=== PATIENT | female | born 1995 | race Caucasian/White ===

== ENCOUNTER 2019-08-09 14:08 | Inpatient (IN) ==
[2019-08-09] MEDS ORDERED: TORADOL IVP STA (14:28)
[2019-08-09] MEDS ORDERED: LACTATED RINGERS 1,000 ML IV STA (14:28)
--- NOTE | 2019-08-09 14:34 | ED.PDOC ---
General ED Provider: Dr. FARRAH XIE MD Chief Complaint: Fever Stated Complaint: mild to mod off and on fever and right pleuritic chest wall pain w/ coughing for 4 days, no rash, no injury, no lethargy Time Seen by Physician: 14:32 Mode of Arrival: Walk-In Information Source: Patient Nursing and Triage Documentation Reviewed and Agree: Yes Does patient meet sepsis criteria?: No System Inflammatory Response Syndrome: Not Applicable Sepsis Protocol: For patient's 13 years and over: Temp is 96.8 and below OR 101 and greater Pulse >90 BPM Resp >20/minute Acutely Altered Mental Status Are patient's symptoms suggestive of a new infection, such as: -Pneumonia -Skin, Soft Tissue -Endocarditis -UTI -Bone, Joint Infection -Implantable Device -Acute Abdominal Infection -Wound Infection -Meningitis -Blood Stream Catheter Infection -Unknown Respiratory Complaint Exam Respiratory Complaint/Exam Onset/Duration: 4 days Symptoms Are: Still present Timing: Intermittent Initial Severity: Mild Current Severity: Mild Character: Reports Non-productive cough Associated Signs and Symptoms: Reports Dyspnea, Fever and Pleuritic chest pain Review of Systems Review Of Systems Constitutional: Reports Fever and Malaise Eyes: Denies Vision change Ears, Nose, Mouth, Throat: Denies Throat pain Respiratory: Reports Cough and Short of air Cardiac: Reports Chest pain GI: Denies Abdominal pain and Vomiting : Denies Dysuria Musculoskeletal: Reports Muscle pain Skin: Denies Rash and Cyanosis Neurological: Denies Cognitive dysfunction All Other Systems: Other [facility] Medical History (Updated 08/09/19 @ 17:43 by GARETT DE SOUZA) Anxiety Depression Physical Exam Physical Exam Appearance: Reports No pain distress Ill-appearing: None Pain Distress: None Eyes: Reports TUTU, EOMI and Conjunctiva clear ENT: Reports Oropharynx normal and Rhinorrhea Neck: Supple Respiratory: Reports Airway patent, Breath sounds clear and Breath sounds equal Cardiovascular: Reports Tachycardia GI/: Reports Soft and Nontender Musculoskeletal: Reports ROM intact and No edema Skin: Reports Warm and Dry; Denies Cyanotic Neurological: Reports Motor intact, Cranial nerves intact, Alert and Oriented Psychiatric: Reports Affect appropriate Interpretation Radiology Interpretation Radiology Interpretation By: Radiologist Radiology Results: No acute changes Exam Interpreted: CXR EKG Interpretation Time of EKG #1: 16:02 Rate: Tachy Rhythm: Sinus Interpretation: no stemi Re-Evaluation Re-Evaluation Time of Re-Evaluation: 16:02 Status: Improved Vital Signs Stable: Yes Appearance: NAD Lungs: Clear Skin: Warm and Dry Neuro: Alert and Oriented X3 Additional Comments: pt improved, differential includes covid 19, hyperglycemia, uti, hypokalemia, admit d/w Oskar Critical Care Note Critical Care Note Total Time (mins): 0 Course Course Hematology/Chemistry: 08/09/19 14:48 08/09/19 14:48 Orders, Labs, Meds: Lab Review 08/09/19 08/09/19 08/09/19 14:42 14:42 14:45 WBC RBC Hgb Hct MCV MCH MCHC RDW Coeff of Sandra Plt Count Immature Gran % (Auto) Neut % (Auto) Lymph % (Auto) Yates % (Auto) Eos % (Auto) Baso % (Auto) Immature Gran # (Auto) Neut # (Auto) Lymph # (Auto) Yates # (Auto) Eos # (Auto) Baso # (Auto) Sodium Potassium Chloride Carbon Dioxide Anion Gap BUN Creatinine Estimated GFR (MDRD) BUN/Creatinine Ratio Glucose Lactic Acid Calcium Magnesium 1.39 L Total Bilirubin AST ALT Alkaline Phosphatase Total Creatine Kinase Total Protein Albumin Globulin Albumin/Globulin Ratio Procalcitonin 1.86 Serum , Qual Urine Color Urine Clarity Urine pH Ur Specific [place] Urine Protein Urine Glucose (UA) Urine Ketones Urine Blood Urine Nitrite Urine Bilirubin Urine Urobilinogen Ur Leukocyte Esterase Urine Microscopic RBC Urine Microscopic WBC Ur Squamous Epith Cells Urine Bacteria Urine Mucus Urine Opiates Screen Ur Oxycodone Screen Urine Methadone Screen Ur Propoxyphene Screen Ur Barbiturates Screen U Tricyclic Antidepress Ur Phencyclidine Scrn Ur Amphetamine Screen U Methamphetamines Scrn U Benzodiazepines Scrn Urine Cocaine Screen U Cannabinoids Screen Acetone, Qual None Influ A Molecular Assay Influ B Molecular Assay 08/09/19 08/09/19 08/09/19 14:45 14:48 14:48 WBC 7.98 RBC 4.01 L Hgb 12.1 Hct 36.3 L MCV 90.5 MCH 30.2 MCHC 33.3 RDW Coeff of Sandra 13.6 Plt Count 168 Immature Gran % (Auto) 1.9 Neut % (Auto) 77.8 H Lymph % (Auto) 9.0 L Yates % (Auto) 10.9 H Eos % (Auto) 0.0 Baso % (Auto) 0.4 Immature Gran # (Auto) 0.2 Neut # (Auto) 6.2 Lymph # (Auto) 0.7 Yates # (Auto) 0.9 Eos # (Auto) 0.0 Baso # (Auto) 0.0 Sodium 133.1 L Potassium 3.01 L Chloride 96.5 L Carbon Dioxide 24.9 Anion Gap 14.71 BUN 9.9 Creatinine 0.99 Estimated GFR (MDRD) 70.00 BUN/Creatinine Ratio 10.00 Glucose 291.5 H Lactic Acid Calcium 7.93 L Magnesium Total Bilirubin 0.42 AST 27.1 ALT 25.6 Alkaline Phosphatase 114.4 Total Creatine Kinase < 20.0 L Total Protein 5.72 L Albumin 2.93 L Globulin 2.79 Albumin/Globulin Ratio 1.05 Procalcitonin Serum , Qual Urine Color Urine Clarity Urine pH Ur Specific [place] Urine Protein Urine Glucose (UA) Urine Ketones Urine Blood Urine Nitrite Urine Bilirubin Urine Urobilinogen Ur Leukocyte Esterase Urine Microscopic RBC Urine Microscopic WBC Ur Squamous Epith Cells Urine Bacteria Urine Mucus Urine Opiates Screen Ur Oxycodone Screen Urine Methadone Screen Ur Propoxyphene Screen Ur Barbiturates Screen U Tricyclic Antidepress Ur Phencyclidine Scrn Ur Amphetamine Screen U Methamphetamines Scrn U Benzodiazepines Scrn Urine Cocaine Screen U Cannabinoids Screen Acetone, Qual Influ A Molecular Assay Influ B Molecular Assay 08/09/19 08/09/19 08/09/19 14:48 14:48 14:52 WBC RBC Hgb Hct MCV MCH MCHC RDW Coeff of Sandra Plt Count Immature Gran % (Auto) Neut % (Auto) Lymph % (Auto) Yates % (Auto) Eos % (Auto) Baso % (Auto) Immature Gran # (Auto) Neut # (Auto) Lymph # (Auto) Yates # (Auto) Eos # (Auto) Baso # (Auto) Sodium Potassium Chloride Carbon Dioxide Anion Gap BUN Creatinine Estimated GFR (MDRD) BUN/Creatinine Ratio Glucose Lactic Acid 4.42 H Calcium Magnesium Total Bilirubin AST ALT Alkaline Phosphatase Total Creatine Kinase Total Protein Albumin Globulin Albumin/Globulin Ratio Procalcitonin Serum , Qual Negative Urine Color Yellow Urine Clarity Cloudy Urine pH 6.0 Ur Specific [place] 1.015 Urine Protein 2+ H Urine Glucose (UA) 1+ H Urine Ketones Negative Urine Blood 2+ H Urine Nitrite Positive H Urine Bilirubin Negative Urine Urobilinogen 0.2 Ur Leukocyte Esterase 2+ H Urine Microscopic RBC 20-30 Urine Microscopic WBC Tntc Ur Squamous Epith Cells Not present Urine Bacteria 2+ Urine Mucus 1+ Urine Opiates Screen Ur Oxycodone Screen Urine Methadone Screen Ur Propoxyphene Screen Ur Barbiturates Screen U Tricyclic Antidepress Ur Phencyclidine Scrn Ur Amphetamine Screen U Methamphetamines Scrn U Benzodiazepines Scrn Urine Cocaine Screen U Cannabinoids Screen Acetone, Qual Influ A Molecular Assay Influ B Molecular Assay 08/09/19 08/09/19 14:52 14:55 WBC RBC Hgb Hct MCV MCH MCHC RDW Coeff of Sandra Plt Count Immature Gran % (Auto) Neut % (Auto) Lymph % (Auto) Yates % (Auto) Eos % (Auto) Baso % (Auto) Immature Gran # (Auto) Neut # (Auto) Lymph # (Auto) Yates # (Auto) Eos # (Auto) Baso # (Auto) Sodium Potassium Chloride Carbon Dioxide Anion Gap BUN Creatinine Estimated GFR (MDRD) BUN/Creatinine Ratio Glucose Lactic Acid Calcium Magnesium Total Bilirubin AST ALT Alkaline Phosphatase Total Creatine Kinase Total Protein Albumin Globulin Albumin/Globulin Ratio Procalcitonin Serum , Qual Urine Color Urine Clarity Urine pH Ur Specific [place] Urine Protein Urine Glucose (UA) Urine Ketones Urine Blood Urine Nitrite Urine Bilirubin Urine Urobilinogen Ur Leukocyte Esterase Urine Microscopic RBC Urine Microscopic WBC Ur Squamous Epith Cells Urine Bacteria Urine Mucus Urine Opiates Screen Negative Ur Oxycodone Screen Negative Urine Methadone Screen Negative Ur Propoxyphene Screen Negative Ur Barbiturates Screen Negative U Tricyclic Antidepress Negative Ur Phencyclidine Scrn Negative Ur Amphetamine Screen Positive H U Methamphetamines Scrn Positive H U Benzodiazepines Scrn Negative Urine Cocaine Screen Positive H U Cannabinoids Screen Positive H Acetone, Qual Influ A Molecular Assay Negative by naat Influ B Molecular Assay Negative by naat Orders Category Date Time Status EKG-(ED ONLY) Stat CARDIO 08/09/19 15:10 Completed ACTIVITY .BR with BRP CARE 08/09/19 16:05 Active BLOOD GLUCOSE MONITORING ACCUCHECK Q6H CARE 08/09/19 16:05 Completed INTAKE & OUTPUT Q8HR CARE 08/09/19 16:05 Active VITAL SIGNS Q8HR CARE 08/09/19 16:05 Active REGULAR DIET DIETARY 08/09/19 Dinner Ordered ACETONE, QUALITATIVE Routine LAB 08/09/19 14:42 Completed BLOOD CULTURE Stat LAB 08/09/19 15:40 Received CBC W/ AUTO DIFF DAILY@0600 LAB 08/10/19 06:00 Ordered CBC W/ AUTO DIFF DAILY@0600 LAB 08/11/19 06:00 Ordered CBC W/ AUTO DIFF Stat LAB 08/09/19 14:48 Completed COMPREHENSIVE METABOLIC PANEL DAILY@0600 LAB 08/10/19 06:00 Ordered COMPREHENSIVE METABOLIC PANEL DAILY@0600 LAB 08/11/19 06:00 Ordered COMPREHENSIVE METABOLIC PANEL Stat LAB 08/09/19 14:48 Completed COVID19, PCR IDPH Stat LAB 08/09/19 14:55 Received CREATINE KINASE Stat LAB 08/09/19 14:45 Completed DRUG SCREEN, URINE, RAPID Stat LAB 08/09/19 14:52 Completed FLU A/B MOLECULAR Stat LAB 08/09/19 14:55 Completed LACTIC ACID Stat LAB 08/09/19 14:48 Completed MAGNESIUM Stat LAB 08/09/19 14:45 Completed PROCALCITONIN Routine LAB 08/09/19 14:42 Completed SERUM Stat LAB 08/09/19 14:48 Completed THYROID PANEL WITH TSH Stat LAB 08/09/19 15:40 Received URINALYSIS C & S IF INDICATED Stat LAB 08/09/19 14:52 Completed URINE CULTURE Stat LAB 08/09/19 14:52 Received Acetaminophen [Tylenol] MEDS 08/09/19 16:05 Active 650 mg PO Q4H PRN Ceftriaxone/D5w 1 gm Premix [Rocephin 1 gm/50 ml D5w] MEDS 08/10/19 09:00 Active 1 gm in 50 ml IV DAILY Ceftriaxone/D5w 1 gm Premix [Rocephin 1 gm/50 ml D5w] MEDS 08/09/19 15:54 Discontinued 1 gm in 50 ml IV ONCE Ketorolac Tromethamine [Toradol] MEDS 08/09/19 14:28 Discontinued 30 mg IVP ONCE STA Ondansetron HCl/Pf [Zofran 4 mg/2 ml] MEDS 08/09/19 15:44 Discontinued 4 mg IVP ONCE STA Potassium Chloride [Potassium Chl 10% Oral Denisha] MEDS 08/09/19 15:09 Discontinued 20 meq PO ONCE STA Ringers Lactated Solution [Lactated Ringers] 1,000 ml MEDS 08/09/19 14:28 Discontinued IV BOLUS Sodium Chloride 0.9% [Sodium Chloride] 1,000 ml MEDS 08/09/19 16:30 Discontinued IV 75 mls/hr RESUSCITATION STATUS Routine OTHERS 08/09/19 16:05 Ordered CHEST, 1V AP ONLY Stat RADS 08/09/19 14:28 Completed Medications Generic Name Dose Route Start Last Admin Trade Name Freq PRN Reason Stop Dose Admin Acetaminophen 650 mg 08/09/19 16:05 Tylenol PO Q4H PRN Mild Pain CEFTRIAXONE/D5W 1 GM PREMIX 1 gm in 50 mls @ 75 mls/hr 08/10/19 09:00 Rocephin 1 Gm/50 Ml D5w IV 08/13/19 08:59 DAILY KAREN Sodium Chloride 1,000 mls @ 150 mls/hr 08/09/19 16:55 08/09/19 17:43 Sodium Chloride IV 150 mls/hr .[id number] KAREN Administration Magnesium Sulfate/Dextrose 1 gm in 100 mls @ 100 mls/hr 08/09/19 16:56 08/09/19 17:46 Magnesium Sulfate 1 Gm/100 Ml D5w IV 08/09/19 17:55 100 mls/hr ONCE STA Administration Potassium Chloride 40 meq in 200 mls @ 50 mls/hr 08/09/19 17:20 Potassium Chloride 20 Meq/100 Ml Premix IV 08/09/19 21:19 ONCE STA Discontinued Medications Generic Name Dose Route Start Last Admin Trade Name Freq PRN Reason Stop Dose Admin Lactated Ringer's 1,000 mls @ 1,000 mls/hr 08/09/19 14:28 08/09/19 14:48 Lactated Ringers IV 08/09/19 15:27 1,000 mls/hr BOLUS STA Administration CEFTRIAXONE/D5W 1 GM PREMIX 1 gm in 50 mls @ 75 mls/hr 08/09/19 15:54 08/09/19 16:14 Rocephin 1 Gm/50 Ml D5w IV 08/09/19 16:33 75 mls/hr ONCE STA Administration Sodium Chloride 1,000 mls @ 75 mls/hr 08/09/19 16:30 08/09/19 17:09 Sodium Chloride IV Not Given .[id number] KAREN Ketorolac Tromethamine 30 mg 08/09/19 14:28 08/09/19 14:48 Toradol IVP 08/09/19 14:29 30 mg ONCE STA Administration Ondansetron HCl 4 mg 08/09/19 15:44 08/09/19 15:51 Zofran 4 Mg/2 Ml IVP 08/09/19 15:45 4 mg ONCE STA Administration Potassium Chloride 20 meq 08/09/19 15:09 08/09/19 15:52 Potassium Chl 10% Oral Denisha PO 08/09/19 15:10 20 meq ONCE STA Administration Vital Signs: Temp Pulse Resp BP Pulse Ox 08/09/19 14:08 99.3 F 130 H 20 107/68 97 Discharge Plan Discharge Patient Disposition: PLACED OBSERVATION Discharge Problem: Fever, Hyperglycemia UTI (urinary tract infection) Qualifiers: Urinary tract infection type: site unspecified Hematuria presence: with hematuria Qualified Code(s): N39.0 - Urinary tract infection, site not specified ED Provider: FARRAH XIE Condition: Stable Discharge Date/Time: 08/09/19 16:43
[2019-08-09 14:51] LABS: HEMATOCRIT 36.3 % (37.0-47.0)
[2019-08-09] MEDS ORDERED: POTASSIUM CHL 10% ORAL SOL PO STA (15:09)
[2019-08-09] MEDS ORDERED: ZOFRAN 4 MG/2 ML IVP STA (15:44)
[2019-08-09] MEDS ORDERED: ROCEPHIN 1 GM/50 ML D5W 1 GM/50 ML BAG IV STA (15:54)
--- NOTE | 2019-08-09 16:00 | DI ---
EXAM: CHEST FRONTAL VIEW HISTORY: Fever. COMPARISON: None FINDINGS: Heart size and mediastinum within normal limits. Lungs are free of infiltrate. No c onsolidation or pleural fluid. There is no pneumothorax or acute bony finding. IMPRESSION: No acute cardiopulmonary process.
[2019-08-09] MEDS ORDERED: SODIUM CHLORIDE 1,000 ML IV SCH ×2 (16:30→16:55)
[2019-08-09] MEDS ORDERED: MAGNESIUM SULFATE 1 GM/100 ML D5W 1 GM/100 ML BAG IV STA (16:56)
[2019-08-09 17:20] VITALS: BMI 30.5
[2019-08-09] MEDS ORDERED: POTASSIUM CHLORIDE 20 MEQ/100 ML PREMIX 40 MEQ/200 ML BAG IV STA (17:20)
--- NOTE | 2019-08-09 17:47 | PCM ---
Chief Complaint Chief Complaint: Fever, Chills, Right Flank Pain History of Present Illness History of Present Illness: Pt states that 5 days ago she started having Right side pain with a baseline pain of 6/10 but with coughing or movement the pain would become a 10/10 for about a minute. She has been very tired ans states that she has been sleeping for the past 3 days (she admits to THC and Meth use 1 week ago). States decreased appetite, good PO liquid intake of OJ, water, soda. States positive for lower abdominal pain with oderus urine that started 3 days ago. She had a temp of 102`F last night and 100.9`F prior to coming into the ER. Admits to gestational DM with first child 6 years ago. Pt states that she uses THC for her Anxiety and that she just started using Meth with last week being her second time using. UDS states Pt positive for Meth, THC, Cocaine. Pt has 3 children ages 6, 4, and 1 y/o. Pt state she does not remember the last few days. She does not remember if she did or did not have sexual relations with anyone after having used Meth. Review of Systems Constitutional: Reports fever, chills, sweats, fatigue and loss of appetite Eyes: Denies blurred vision, discharge and photophobia Nose: Denies congestion and discharge Throat: Denies pain, swelling and voice change Respiratory: Reports pain with breathing (Pain is in the Right Flank with deep breathing. ); Denies cough and shortness of air Cardiovascular: Reports diaphoresis; Denies chest pain, left arm pain, edema and palpitations Gastrointestinal: Reports abdominal pain (As noted in the HPI. ); Denies nausea and vomiting Genitourinary: Reports flank pain (Right side. ) and other (Odor to urine that started 1-2 days ago. ); Denies dysuria, hematuria, frequency, incontinence, vaginal discharge, abnormal bleeding and pelvic pain Neurological: Reports headache (Top frontal); Denies speech difficulty Skin: Denies wounds and bruising Immunology: Denies frequent infections and difficulty healing Hematology: Denies easy bruising, easy bleeding and swollen glands Endocrine: Denies weight changes Psychiatric: Reports depression and anxiety Habits: Reports substance use (As noted in the HPI. ) Allergies Allergies Allergy/AdvReac Type Severity Reaction Status Date / Time No Known Allergies Allergy Unverified 08/09/19 14:13 ON LICENSE OF [facility] Medical History (Updated 08/09/19 @ 17:58 by GARETT DE SOUZA) Anxiety Depression Illicit drug use Medications Medications: Medications Generic Name Dose Route Start Last Admin Trade Name Freq PRN Reason Stop Dose Admin Acetaminophen 650 mg 08/09/19 16:05 Tylenol PO Q4H PRN Mild Pain CEFTRIAXONE/D5W 1 GM PREMIX 1 gm in 50 mls @ 75 mls/hr 08/10/19 09:00 Rocephin 1 Gm/50 Ml D5w IV 08/13/19 08:59 DAILY KAREN Sodium Chloride 1,000 mls @ 150 mls/hr 08/09/19 16:55 Sodium Chloride IV .Q6H40M KAREN Magnesium Sulfate/Dextrose 1 gm in 100 mls @ 100 mls/hr 08/09/19 16:56 Magnesium Sulfate 1 Gm/100 Ml D5w IV 08/09/19 17:55 ONCE STA Potassium Chloride 40 meq in 200 mls @ 50 mls/hr 08/09/19 17:20 Potassium Chloride 20 Meq/100 Ml Premix IV 08/09/19 21:19 ONCE STA Body Composition Height: 5 ft 2 in Weight: 167 lb 1.766 oz Body Mass Index (BMI): 30.5 Vital Signs Temperature: 97.9 F Pulse Rate: 96 Respiratory Rate: 20 Blood Pressure: 107/68 O2 Sat by Pulse Oximetry: 100 Physical Examination Appearance: Reports Ill-appearing and Obese Pain Distress: Moderate Eyes: Reports Conjunctiva clear ENT: Reports Nose normal and Oropharynx normal; Denies Rhinorrhea Neck: Supple (No cervical chain Lymphadenopathy) Respiratory: Reports Airway patent, Breath sounds clear and Breath sounds equal Cardiovascular: Reports RRR, No rub, No murmur and Tachycardia GI/: Reports Tender (Upper quadrant on palpation) and Bowel sounds hypoactive Skin: Reports Warm (moist) Neurological: Reports Sensation intact, Motor intact, Alert and Oriented Lab/Tests/Diagnostic Imaging Lab/Tests/Diagnostic Imaging: Lab Review 08/09/19 08/09/19 08/09/19 14:42 14:42 14:45 WBC RBC Hgb Hct MCV MCH MCHC RDW Coeff of Sandra Plt Count Immature Gran % (Auto) Neut % (Auto) Lymph % (Auto) Coal % (Auto) Eos % (Auto) Baso % (Auto) Immature Gran # (Auto) Neut # (Auto) Lymph # (Auto) Coal # (Auto) Eos # (Auto) Baso # (Auto) Sodium Potassium Chloride Carbon Dioxide Anion Gap BUN Creatinine Estimated GFR (MDRD) BUN/Creatinine Ratio Glucose Lactic Acid Calcium Magnesium 1.39 L Total Bilirubin AST ALT Alkaline Phosphatase Total Creatine Kinase Total Protein Albumin Globulin Albumin/Globulin Ratio Procalcitonin 1.86 Serum , Qual Urine Color Urine Clarity Urine pH Ur Specific [place] Urine Protein Urine Glucose (UA) Urine Ketones Urine Blood Urine Nitrite Urine Bilirubin Urine Urobilinogen Ur Leukocyte Esterase Urine Microscopic RBC Urine Microscopic WBC Ur Squamous Epith Cells Urine Bacteria Urine Mucus Urine Opiates Screen Ur Oxycodone Screen Urine Methadone Screen Ur Propoxyphene Screen Ur Barbiturates Screen U Tricyclic Antidepress Ur Phencyclidine Scrn Ur Amphetamine Screen U Methamphetamines Scrn U Benzodiazepines Scrn Urine Cocaine Screen U Cannabinoids Screen Acetone, Qual None Influ A Molecular Assay Influ B Molecular Assay 08/09/19 08/09/19 08/09/19 14:45 14:48 14:48 WBC 7.98 RBC 4.01 L Hgb 12.1 Hct 36.3 L MCV 90.5 MCH 30.2 MCHC 33.3 RDW Coeff of Sandra 13.6 Plt Count 168 Immature Gran % (Auto) 1.9 Neut % (Auto) 77.8 H Lymph % (Auto) 9.0 L Coal % (Auto) 10.9 H Eos % (Auto) 0.0 Baso % (Auto) 0.4 Immature Gran # (Auto) 0.2 Neut # (Auto) 6.2 Lymph # (Auto) 0.7 Coal # (Auto) 0.9 Eos # (Auto) 0.0 Baso # (Auto) 0.0 Sodium 133.1 L Potassium 3.01 L Chloride 96.5 L Carbon Dioxide 24.9 Anion Gap 14.71 BUN 9.9 Creatinine 0.99 Estimated GFR (MDRD) 70.00 BUN/Creatinine Ratio 10.00 Glucose 291.5 H Lactic Acid Calcium 7.93 L Magnesium Total Bilirubin 0.42 AST 27.1 ALT 25.6 Alkaline Phosphatase 114.4 Total Creatine Kinase < 20.0 L Total Protein 5.72 L Albumin 2.93 L Globulin 2.79 Albumin/Globulin Ratio 1.05 Procalcitonin Serum , Qual Urine Color Urine Clarity Urine pH Ur Specific [place] Urine Protein Urine Glucose (UA) Urine Ketones Urine Blood Urine Nitrite Urine Bilirubin Urine Urobilinogen Ur Leukocyte Esterase Urine Microscopic RBC Urine Microscopic WBC Ur Squamous Epith Cells Urine Bacteria Urine Mucus Urine Opiates Screen Ur Oxycodone Screen Urine Methadone Screen Ur Propoxyphene Screen Ur Barbiturates Screen U Tricyclic Antidepress Ur Phencyclidine Scrn Ur Amphetamine Screen U Methamphetamines Scrn U Benzodiazepines Scrn Urine Cocaine Screen U Cannabinoids Screen Acetone, Qual Influ A Molecular Assay Influ B Molecular Assay 08/09/19 08/09/19 08/09/19 14:48 14:48 14:52 WBC RBC Hgb Hct MCV MCH MCHC RDW Coeff of Sandra Plt Count Immature Gran % (Auto) Neut % (Auto) Lymph % (Auto) Coal % (Auto) Eos % (Auto) Baso % (Auto) Immature Gran # (Auto) Neut # (Auto) Lymph # (Auto) Coal # (Auto) Eos # (Auto) Baso # (Auto) Sodium Potassium Chloride Carbon Dioxide Anion Gap BUN Creatinine Estimated GFR (MDRD) BUN/Creatinine Ratio Glucose Lactic Acid 4.42 H Calcium Magnesium Total Bilirubin AST ALT Alkaline Phosphatase Total Creatine Kinase Total Protein Albumin Globulin Albumin/Globulin Ratio Procalcitonin Serum , Qual Negative Urine Color Yellow Urine Clarity Cloudy Urine pH 6.0 Ur Specific [place] 1.015 Urine Protein 2+ H Urine Glucose (UA) 1+ H Urine Ketones Negative Urine Blood 2+ H Urine Nitrite Positive H Urine Bilirubin Negative Urine Urobilinogen 0.2 Ur Leukocyte Esterase 2+ H Urine Microscopic RBC 20-30 Urine Microscopic WBC Tntc Ur Squamous Epith Cells Not present Urine Bacteria 2+ Urine Mucus 1+ Urine Opiates Screen Ur Oxycodone Screen Urine Methadone Screen Ur Propoxyphene Screen Ur Barbiturates Screen U Tricyclic Antidepress Ur Phencyclidine Scrn Ur Amphetamine Screen U Methamphetamines Scrn U Benzodiazepines Scrn Urine Cocaine Screen U Cannabinoids Screen Acetone, Qual Influ A Molecular Assay Influ B Molecular Assay 08/09/19 08/09/19 14:52 14:55 WBC RBC Hgb Hct MCV MCH MCHC RDW Coeff of Sandra Plt Count Immature Gran % (Auto) Neut % (Auto) Lymph % (Auto) Coal % (Auto) Eos % (Auto) Baso % (Auto) Immature Gran # (Auto) Neut # (Auto) Lymph # (Auto) Coal # (Auto) Eos # (Auto) Baso # (Auto) Sodium Potassium Chloride Carbon Dioxide Anion Gap BUN Creatinine Estimated GFR (MDRD) BUN/Creatinine Ratio Glucose Lactic Acid Calcium Magnesium Total Bilirubin AST ALT Alkaline Phosphatase Total Creatine Kinase Total Protein Albumin Globulin Albumin/Globulin Ratio Procalcitonin Serum , Qual Urine Color Urine Clarity Urine pH Ur Specific [place] Urine Protein Urine Glucose (UA) Urine Ketones Urine Blood Urine Nitrite Urine Bilirubin Urine Urobilinogen Ur Leukocyte Esterase Urine Microscopic RBC Urine Microscopic WBC Ur Squamous Epith Cells Urine Bacteria Urine Mucus Urine Opiates Screen Negative Ur Oxycodone Screen Negative Urine Methadone Screen Negative Ur Propoxyphene Screen Negative Ur Barbiturates Screen Negative U Tricyclic Antidepress Negative Ur Phencyclidine Scrn Negative Ur Amphetamine Screen Positive H U Methamphetamines Scrn Positive H U Benzodiazepines Scrn Negative Urine Cocaine Screen Positive H U Cannabinoids Screen Positive H Acetone, Qual Influ A Molecular Assay Negative by naat Influ B Molecular Assay Negative by naat Orders Category Date Time Status ADMIT OBSERVATION [PLACE PATIENT OBSERVATION] .TO ADMISSION 08/09/19 16:55 Active MEDSURG (MONITORED BED) EKG-(ED ONLY) Stat CARDIO 08/09/19 15:10 Completed ACTIVITY .BR with BRP CARE 08/09/19 16:05 Active BLOOD GLUCOSE MONITORING ACCUCHECK Q6H CARE 08/09/19 16:05 Active BLOOD GLUCOSE MONITORING ACCUCHECK Q6H CARE 08/09/19 16:56 Active INTAKE & OUTPUT Q8HR CARE 08/09/19 16:05 Active IV ACCESS ONCE CARE 08/09/19 17:03 Active TELEMETRY MONITORING TELE CARE 08/09/19 16:56 Active VITAL SIGNS Q8HR CARE 08/09/19 16:05 Active REGULAR DIET DIETARY 08/09/19 Dinner Ordered ACETONE, QUALITATIVE Routine LAB 08/09/19 14:42 Completed BASIC METABOLIC PANEL Timed LAB 08/09/19 22:30 Ordered BLOOD CULTURE Stat LAB 08/09/19 15:40 Received CBC W/ AUTO DIFF DAILY@0600 LAB 08/10/19 06:00 Ordered CBC W/ AUTO DIFF DAILY@0600 LAB 08/11/19 06:00 Ordered CBC W/ AUTO DIFF Stat LAB 08/09/19 14:48 Completed COMPREHENSIVE METABOLIC PANEL DAILY@0600 LAB 08/10/19 06:00 Ordered COMPREHENSIVE METABOLIC PANEL DAILY@0600 LAB 08/11/19 06:00 Ordered COMPREHENSIVE METABOLIC PANEL Stat LAB 08/09/19 14:48 Completed COVID19, PCR IDPH Stat LAB 08/09/19 14:55 Received CREATINE KINASE Stat LAB 08/09/19 14:45 Completed DRUG SCREEN, URINE, RAPID Stat LAB 08/09/19 14:52 Completed FLU A/B MOLECULAR Stat LAB 08/09/19 14:55 Completed LACTIC ACID Stat LAB 08/09/19 14:48 Completed MAGNESIUM Stat LAB 08/09/19 14:45 Completed PROCALCITONIN Routine LAB 08/09/19 14:42 Completed SERUM Stat LAB 08/09/19 14:48 Completed THYROID PANEL WITH TSH Stat LAB 08/09/19 15:40 Received URINALYSIS C & S IF INDICATED Stat LAB 08/09/19 14:52 Completed URINE CULTURE Stat LAB 08/09/19 14:52 Received Acetaminophen [Tylenol] MEDS 08/09/19 16:05 Active 650 mg PO Q4H PRN Ceftriaxone/D5w 1 gm Premix [Rocephin 1 gm/50 ml D5w] MEDS 08/10/19 09:00 Active 1 gm in 50 ml IV DAILY Ceftriaxone/D5w 1 gm Premix [Rocephin 1 gm/50 ml D5w] MEDS 08/09/19 15:54 Discontinued 1 gm in 50 ml IV ONCE Ketorolac Tromethamine [Toradol] MEDS 08/09/19 14:28 Discontinued 30 mg IVP ONCE STA Magnesium Sulfate Bag [Magnesium Sulfate 1 gm/100 ml MEDS 08/09/19 16:56 Active D5w] 1 gm in 100 ml IV ONCE Ondansetron HCl/Pf [Zofran 4 mg/2 ml] MEDS 08/09/19 15:44 Discontinued 4 mg IVP ONCE STA Potassium Chloride [Potassium Chl 10% Oral Denisha] MEDS 08/09/19 15:09 Discontinued 20 meq PO ONCE STA Potassium Chloride [Potassium Chloride 20 Meq/100 ml MEDS 08/09/19 17:20 Active Premix] 40 meq in 200 ml IV ONCE Ringers Lactated Solution [Lactated Ringers] 1,000 ml MEDS 08/09/19 14:28 Discontinued IV BOLUS Sodium Chloride 0.9% [Sodium Chloride] 1,000 ml MEDS 08/09/19 16:55 Ordered IV 150 mls/hr Sodium Chloride 0.9% [Sodium Chloride] 1,000 ml MEDS 08/09/19 16:30 Discontinued IV 75 mls/hr RESUSCITATION STATUS Routine OTHERS 08/09/19 16:05 Ordered CHEST, 1V AP ONLY Stat RADS 08/09/19 14:28 Completed Medications Generic Name Dose Route Start Last Admin Trade Name Nilda PRN Reason Stop Dose Admin Acetaminophen 650 mg 08/09/19 16:05 Tylenol PO Q4H PRN Mild Pain CEFTRIAXONE/D5W 1 GM PREMIX 1 gm in 50 mls @ 75 mls/hr 08/10/19 09:00 Rocephin 1 Gm/50 Ml D5w IV 08/13/19 08:59 DAILY KAREN Sodium Chloride 1,000 mls @ 150 mls/hr 08/09/19 16:55 Sodium Chloride IV .Q6H40M KAREN Magnesium Sulfate/Dextrose 1 gm in 100 mls @ 100 mls/hr 08/09/19 16:56 Magnesium Sulfate 1 Gm/100 Ml D5w IV 08/09/19 17:55 ONCE STA Potassium Chloride 40 meq in 200 mls @ 50 mls/hr 08/09/19 17:20 Potassium Chloride 20 Meq/100 Ml Premix IV 08/09/19 21:19 ONCE STA Discontinued Medications Generic Name Dose Route Start Last Admin Trade Name Nilda PRN Reason Stop Dose Admin Lactated Ringer's 1,000 mls @ 1,000 mls/hr 08/09/19 14:28 08/09/19 14:48 Lactated Ringers IV 08/09/19 15:27 1,000 mls/hr BOLUS STA Administration CEFTRIAXONE/D5W 1 GM PREMIX 1 gm in 50 mls @ 75 mls/hr 08/09/19 15:54 08/09/19 16:14 Rocephin 1 Gm/50 Ml D5w IV 08/09/19 16:33 75 mls/hr ONCE STA Administration Sodium Chloride 1,000 mls @ 75 mls/hr 08/09/19 16:30 08/09/19 17:09 Sodium Chloride IV Not Given .[id number] KAREN Ketorolac Tromethamine 30 mg 08/09/19 14:28 08/09/19 14:48 Toradol IVP 08/09/19 14:29 30 mg ONCE STA Administration Ondansetron HCl 4 mg 08/09/19 15:44 08/09/19 15:51 Zofran 4 Mg/2 Ml IVP 08/09/19 15:45 4 mg ONCE STA Administration Potassium Chloride 20 meq 08/09/19 15:09 08/09/19 15:52 Potassium Chl 10% Oral Denisha PO 08/09/19 15:10 20 meq ONCE STA Administration Assessment (1) Acute sepsis: Status: Acute Code(s): A41.9 - Sepsis, unspecified organism SNOMED Code(s): 57119138 (2) UTI (urinary tract infection): Status: Acute Code(s): N39.0 - Urinary tract infection, site not specified SNOMED Code(s): 64118178 Qualifiers: Hematuria presence: with hematuria Urinary tract infection type: site unspecified Qualified Code(s): N39.0 - Urinary tract infection, site not specified; R31.9 - Hematuria, unspecified (3) Electrolyte imbalance: Status: Acute Code(s): E87.8 - Other disorders of electrolyte and fluid balance, not elsewhere classified SNOMED Code(s): 366663490 (4) Hyperglycemia: Status: Acute Code(s): R73.9 - Hyperglycemia, unspecified SNOMED Code(s): 39910627 (5) Illicit drug use: Status: Acute Code(s): F19.90 - Other psychoactive substance use, unspecified, uncomplicated SNOMED Code(s): 731053943 Plan Plan: 1) Acute Sepsis: Positive for Elevated Temp, Tachycardia, Active UTI; 1 L LR infused, Tylenol given in ER, 2) Urinary Tract Infection: Rocephin 1 gm dailly IV, Monitor VS, Pain control as needed. 3) Electrolyte Imbalance: Decreased Na, Cl, K, Mg; Cardiac Monitoring, VSS Q8H, Fluid changed from LR to NS 150 ml/hr with BMP recheck at 2230 hours, Mg 1 gm and IV 40 mEq K ordered, 20 PO K given in ER. Monitor fluid load and electrolyte correction. Recheck CBC, BMP, and Mg in AM. 4) Hyperglycemia: No ketones, Glucose 291, SSI, Monitor Glucose Q6H. 5) Illicit Drug Use: Monitor for withdrawal, Attempt to find Rehabilitation and/or counseling. DVT/GI Prophylaxis: Pt is ambulatory without assistance, Anticipate at most a 2 night Observation Code Status: Full Code.
[2019-08-09] MEDS ORDERED: POTASSIUM CHLORIDE 20 MEQ/100 ML PREMIX 20 MEQ/100 ML BAG IV STA ×2 (18:18→18:20)
[2019-08-09] MEDS ORDERED: ZOFRAN 4 MG/2 ML IVP PRN (20:08)
[2019-08-09] MEDS: TORADOL IVP PRN (23:31)
[2019-08-10] MEDS: TYLENOL PO PRN ×2 (04:26→16:20)
[2019-08-10 05:09] LABS: HEMATOCRIT 37.7 % (37.0-47.0)
[2019-08-10] MEDS ORDERED: ROCEPHIN 1 GM/50 ML D5W 1 GM/50 ML BAG IV SCH ×2 (09:00→09:30)
[2019-08-10] MEDS: TORADOL IVP PRN ×2 (09:00→17:21)
[2019-08-10] MEDS: LACTATED RINGERS 1,000 ML IV SCH ×3 (09:03→21:13)
--- NOTE | 2019-08-10 09:23 | PCM.PROG ---
Date Seen by Provider: 08/10/19 Time Seen by Provider: 08:30 Subjective: Pt states she was feeling hot and cold throughout the night. She was not very comfortable, has a headache this AM. She feels thirsty and has upper abdominal pain on the right side. Pt spoke about family wanting to get her into rehabilitation. I stated I will help as well as the medical staff credentialing coordinator. Pt denies heart, lung, urination issues. C/o right flank pain but is able to lay down on her right side today. Objective: Vitals: T=101.4 F, P=118, R=18, BA=752/62, SPO2=99 HEENT: good FOV, balance, no nasal drainage Neck: no cervical lymphadenopathy at this time. Lungs: Clear all mcnair, good inspiratory effort, no increased WOB or SOB CVS: RRR, Tachycardic this morning, no peripheral edema, 3 of 4 blood Cx positive for Gram Neg Rods Abdomen: Increased tenderness RUQ from midline to right side. No organomegaly however Pt was not able to tolerate deep pressure on palpation, Small dime size area midline lower abdomen potential developing abscess (will monitor) Extremities: no edema, antalgic gait likely guarding d/t RUQ abd pain. Small 1- 2mm scab garcía about the LE. Pt states they do not itch and have been there for about a week or more. Neurological: normal balance and coordination Skin: as noted above Pt has been talking with her children via Face Time and has been getting a bit emotional as she has been thinking about rehabilitation and the thought of losing her children from the drug abuse. Lab/Tests/Diagnostic Imaging: [] (1) Septicemia: Status: Acute Code(s): A41.9 - Sepsis, unspecified organism SNOMED Code(s): 401360269 (2) UTI (urinary tract infection): Status: Acute Code(s): N39.0 - Urinary tract infection, site not specified SNOMED Code(s): 49766854 (3) Electrolyte imbalance: Status: Acute Code(s): E87.8 - Other disorders of electrolyte and fluid balance, not elsewhere cla ssified SNOMED Code(s): 533859186 (4) Hyperglycemia: Status: Acute Code(s): R73.9 - Hyperglycemia, unspecified SNOMED Code(s): 88545118 (5) Illicit drug use: Status: Acute Code(s): F19.90 - Other psychoactive substance use, unspecified, uncomplicated SNOMED Code(s): 292534545 Plan: 1) Septicemia: Positive for Elevated Temp, Tachycardia, Active UTI; 1 L LR infused, Tylenol given in ER 08/10/2019: 3 of 4 Blood Cx Positive for Gram Neg Rods Awaiting Sensitivity Increased Rocephin to 2 Grams Daily Pt tachycardic this AM with 101+`F, LR 150ml/hr, encourage PO Ice water, Tylenol on JUN Continue to VS and Cardiac Monitoring Increase frequency of VS to Q4H Add Florastor 2) Urinary Tract Infection: Rocephin 1 gm dailly IV, Monitor VS, Pain control as needed. 08/10/2019: Rocephin increased to 2 Grams Daily Awaiting Cx and Sensitivity from Urine sample Continue with Toradol for right flank pain which has improved since yesterday 3) Electrolyte Imbalance: Decreased Na, Cl, K, Mg; Cardiac Monitoring, VSS Q8H, Fluid changed from LR to NS 150 ml/hr with BMP recheck at 2230 hours, Mg 1 gm and IV 40 mEq K ordered, 20 PO K given in ER. Monitor fluid load and electrolyte correction. Recheck CBC, BMP, and Mg in AM. 08/10/2019: Electrolytes have been corrected at this time Mg is low normal and will add another 1gm today, will continue to monitor electrolytes Increase VS monitoring to Q4H Continue Cardiac Monitoring 4) Hyperglycemia: No ketones, Glucose 291, SSI, Monitor Glucose Q6H. 08/10/2019: Glucose has improved though still elevated, Continue Glucose monitoring Q6H May increase SSI dosages Considering adding Metformin on DC home orders (Pt does not have a PCP at this time, will talk with Case Management regarding same) 5) Illicit Drug Use: Monitor for withdrawal, Attempt to find Rehabilitation and/or counseling. 08/10/2019: Will talk with Case Management regarding rehabilitation or similar should Pt still be here on Monday otherwise will give a list for Pt to review DVT/GI Prophylaxis: Pt is ambulatory without assistance, PPI Code Status: Full Code.
[2019-08-10] MEDS ORDERED: PHENERGAN 25 MG/ML VIAL ONE (10:02)
[2019-08-10] MEDS: PHENERGAN 25 MG/ML VIAL 25 MG in SODIUM CHLORIDE 50 ML IV PRN (10:11)
[2019-08-10] MEDS ORDERED: MAGNESIUM SULFATE 1 GM/100 ML D5W 1 GM/100 ML BAG IV STA (10:45)
[2019-08-10] MEDS ORDERED: PROTONIX PO STA (10:51)
[2019-08-10] MEDS: FLORASTOR PO SCH ×3 (11:22→20:53)
[2019-08-10] MEDS ORDERED: COMPAZINE PO ONE (17:25)
[2019-08-10] MEDS ORDERED: HUMULIN R SUBCUT PRN (21:15)
[2019-08-11] MEDS: LACTATED RINGERS 1,000 ML IV SCH ×4 (01:16→20:22)
[2019-08-11 06:01] LABS: HEMATOCRIT 31.9 % (37.0-47.0)
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
[2019-08-11] MEDS: ROCEPHIN 2 GM/50 ML D5W 2 GM/50 ML BAG IV SCH (09:30)
[2019-08-11] MEDS: FLORASTOR PO SCH ×3 (09:30→20:02)
[2019-08-11] MEDS: TORADOL IVP PRN ×2 (09:30→19:50)
[2019-08-11] MEDS ORDERED: COMPAZINE PO ONE (09:43)
[2019-08-11] MEDS ORDERED: PHENERGAN 25 MG/ML VIAL ONE (19:55)
[2019-08-11] MEDS: PHENERGAN 25 MG/ML VIAL 25 MG in SODIUM CHLORIDE 50 ML IV PRN (19:58)
[2019-08-12] MEDS: LACTATED RINGERS 1,000 ML IV SCH ×3 (06:05→16:19)
--- NOTE | 2019-08-12 07:29 | PCM.PROG ---
Date Seen by Provider: 08/12/19 Time Seen by Provider: 08:30 Subjective: Pt states that she is feeling much better though she is quite tired. She states that the anti-nausea medication really makes her tired. She did try the Compazine and stated she liked this better as it did not make her tired. She admits that she has been sleeping a lot. Her right flank pain has improved and is now a 7/10 and her upper abdominal pain has also improved and she rates this as a 3/10. In addition her nausea is better as well. She still complains about a GARCÍA at the top front of her head. No complaints of visual changes, balance issues, memory problems. Discussed plan of going home tomorrow with oral Ab. Objective: Vitals: T=98.3 F, P=103, R=16, CT=357/81, SPO2=95 HEENT: No visible trauma to the head, normal proprioception, no nasal drainage Neck: remains soft without lymphadenopathy Lungs: Clear all mcnair anterior and posterior CVS: remains with RRR, no rubs, clicks, murmurs, pain free Abdomen: Much less grimacing with palpation of the upper quadrants, normal bowel sounds, now lower pain with palpation Extremities: no edema, normal strength Skin: no change to the area of the lower abdomen that at first looked like a developing abscess. Lab/Tests/Diagnostic Imaging: (1) Septicemia: Status: Acute Code(s): A41.9 - Sepsis, unspecified organism SNOMED Code(s): 397633165 (2) UTI (urinary tract infection): Status: Acute Code(s): N39.0 - Urinary tract infection, site not specified SNOMED Code(s): 30376157 (3) Electrolyte imbalance: Status: Acute Code(s): E87.8 - Other disorders of electrolyte and fluid balance, not elsewhere classified SNOMED Code(s): 511274992 (4) Hyperglycemia: Status: Acute Code(s): R73.9 - Hyperglycemia, unspecified SNOMED Code(s): 90807649 (5) Illicit drug use: Status: Acute Code(s): F19.90 - Other psychoactive substance use, unspecified, uncomplicated SNOMED Code(s): 494026022 Plan: 1) Septicemia: Positive for Elevated Temp, Tachycardia, Active UTI; 1 L LR infused, Tylenol given in ER 08/10/2019: 3 of 4 Blood Cx Positive for Gram Neg Rods Awaiting Sensitivity Increased Rocephin to 2 Grams Daily Pt tachycardic this AM with 101+`F, LR 150ml/hr, encourage PO Ice water, Tylenol on JUN Continue to VS and Cardiac Monitoring Increase frequency of VS to Q4H Add Florastor 08/11/2019: Afebrile this AM Continue with Rocephin 2 gm daily WBC count increased to 13.5 May add Zosyn depending on how high WBC climbs and on Pt presentation which is stable at this time NEGATIVE for COVID-19 per Pathology Report 08/12/2019 WBC Stable at 13.5+/- as are RBCs and H&H, Continue to monitor Will send home with PO Ab for a 5 day period to cover her Urosepticemia 2) Urinary Tract Infection: Rocephin 1 gm dailly IV, Monitor VS, Pain control as needed. 08/10/2019: Rocephin increased to 2 Grams Daily Awaiting Cx and Sensitivity from Urine sample Continue with Toradol for right flank pain which has improved since 08/11/2019 Sensitivity has resulted with Rocephin and Zosyn (and others) showing susceptibility UTI symptoms unchanged, Right Flank pain may also be related to bruising as noted in Subjective comments above Pain is better 08/12/2019 Pt continues today without S/Sy of UTI, will continue IVF until this afternoon and then off until DC home tomorrow. 3) Electrolyte Imbalance: Decreased Na, Cl, K, Mg; Cardiac Monitoring, VSS Q8H, Fluid changed from LR to NS 150 ml/hr with BMP recheck at 2230 hours, Mg 1 gm and IV 40 mEq K ordered, 20 PO K given in ER. Monitor fluid load and electrolyte correction. Recheck CBC, BMP, and Mg in AM. 08/10/2019: Electrolytes have been corrected at this time Mg is low normal and will add another 1gm today, will continue to monitor electrolytes Increase VS monitoring to Q4H Continue Cardiac Monitoring 08/11/2019 Remain stable at this time Occasional Tachycardia but mostly improved 08/12/2019 Other than a slight increase in Cl Electrolytes remain stable 4) Hyperglycemia: No ketones, Glucose 291, SSI, Monitor Glucose Q6H. 08/10/2019: Glucose has improved though still elevated, Continue Glucose monitoring Q6H May increase SSI dosages Considering adding Metformin on DC home orders (Pt does not have a PCP at this time, will talk with Case Management regarding same) 08/11/2019 Glucose is still high Changed diet to ADA 1999 arthur Compazine seems to help with Nausea 08/12/2019 Glucose improved this AM now at 110.6 mg/dL, Diabetic Diet 1999 arthur to continue Will add Cut Out Worker Start low dose Metformin today, Explained to Pt possible GI SE, Pt understood Obtained Hgb A1C and this is 5.44. No need to continue with Metformin at this time. 5) Illicit Drug Use: Monitor for withdrawal, Attempt to find Rehabilitation and/or counseling. 08/10/2019: Will talk with Case Management regarding rehabilitation or similar should Pt still be here on Monday otherwise will give a list for Pt to review 08/11/2019: Same 08/12/2019: Same DVT/GI Prophylaxis: Pt is ambulatory without assistance, PPI Code Status: Full Code. Discharge Planning: Referral to Dr. Dasilva to establish as PCP per Pt request Continue Florastor and add Augmentin for 5 days to complete 10 day course of Ab Pt would benefit from Counseling as she may end up going through divorce and Substance Use
[2019-08-12] MEDS: ROCEPHIN 2 GM/50 ML D5W 2 GM/50 ML BAG IV SCH (08:09)
[2019-08-12] MEDS: FLORASTOR PO SCH ×3 (08:11→20:35)
[2019-08-12] MEDS ORDERED: COMPAZINE PO PRN (08:58)
[2019-08-12] MEDS: TYLENOL PO PRN ×2 (09:16→19:07)
[2019-08-12] MEDS: GLUCOPHAGE PO SCH (09:17)
[2019-08-12] MEDS: TORADOL IVP PRN (09:23)
[2019-08-13] MEDS: TYLENOL PO PRN (05:06)
[2019-08-13 05:09] LABS: HEMATOCRIT 35.3 % (37.0-47.0)
[2019-08-13 05:55] VITALS: BP 118/79; TEMP 98.2
--- NOTE | 2019-08-13 07:17 | PCM.DC ---
Final Diagnosis: Septicemia due to Urinary Tract Infection causing Electrolyte Imbalance and Hyperglycemia and related to Illicit Drug Use. (1) Septicemia: Status: Acute Code(s): A41.9 - Sepsis, unspecified organism SNOMED Code(s): 888653312 (2) UTI (urinary tract infection): Status: Acute Code(s): N39.0 - Urinary tract infection, site not specified SNOMED Code(s): 71839772 Qualifiers: Hematuria presence: with hematuria Urinary tract infection type: site unspecified Qualified Code(s): N39.0 - Urinary tract infection, site not specified; R31.9 - Hematuria, unspecified (3) Electrolyte imbalance: Status: Acute Code(s): E87.8 - Other disorders of electrolyte and fluid balance, not elsewhere classified SNOMED Code(s): 180238812 (4) Hyperglycemia: Status: Acute Code(s): R73.9 - Hyperglycemia, unspecified SNOMED Code(s): 55596618 (5) Illicit drug use: Status: Acute Code(s): F19.90 - Other psychoactive substance use, unspecified, uncomplicated SNOMED Code(s): 547624046 Prognosis at Discharge: Very good for her infection status and her goals for stopping substance abuse also look very good. She has 3 children as her motivation. Condition at Discharge: Stable HEENT: did not complain of GARCÍA this AM Lungs: Clear all mcnair, no increased WOB or SOB Heart: RRR, No rubs, clicks, murmurs, pulses intact 4x4 Abdomen: decreased pain today about 1/10, nausea is under control Musculoskeletal: Still has right flank pain but states today pain is 4/10 Neuro: good balance, propriception good Medications at Discharge: Ambulatory Orders Medication Instructions Recorded 1 [No Reported Medications] 08/09/19 Education Provided to Patient and Family: Sepsis, Drug abuse Follow-ups: Establish PCP with Dr. Dasilva. Appointment with him Monday08/14/2019 @ 0900 hours. Discharge Disposition: Home Hospital Course: Mentation improved: Pt was a little slow to respond but now is quite ready to answer questions WBC: improved after 5 days of IV Ab. Also her pains and nausea have all but resolved Hyperglycemia: This seems resolved, Hgb A1C was 5.44 Will continue Ab on DC home based on C&S of blood Cx Plan: 1) Septicemia: Positive for Elevated Temp, Tachycardia, Active UTI; 1 L LR infused, Tylenol given in ER 08/10/2019: 3 of 4 Blood Cx Positive for Gram Neg Rods Awaiting Sensitivity Increased Rocephin to 2 Grams Daily Pt tachycardic this AM with 101+`F, LR 150ml/hr, encourage PO Ice water, Tylenol on JUN Continue to VS and Cardiac Monitoring Increase frequency of VS to Q4H Add Florastor 08/11/2019: Afebrile this AM Continue with Rocephin 2 gm daily WBC count increased to 13.5 May add Zosyn depending on how high WBC climbs and on Pt presentation which is stable at this time NEGATIVE for COVID-19 per Pathology Report 08/12/2019 WBC Stable at 13.5+/- as are RBCs and H&H, Continue to monitor Will send home with PO Ab for a 5 day period to cover her Urosepticemia 08/13/2019 WBC improved today now at 11.1 Augmentin for the next 5 days Close F/U with Dr. Dasilva 2) Urinary Tract Infection: Rocephin 1 gm dailly IV, Monitor VS, Pain control as needed. 08/10/2019: Rocephin increased to 2 Grams Daily Awaiting Cx and Sensitivity from Urine sample Continue with Toradol for right flank pain which has improved since yesterday 08/11/2019 Sensitivity has resulted with Rocephin and Zosyn (and others) showing susceptibility UTI symptoms unchanged, Right Flank pain may also be related to bruising as noted in Subjective comments above Pain is better 08/12/2019 Pt continues today without S/Sy of UTI, will continue IVF until this afternoon and then off until DC home tomorrow. 08/13/2019 Pt states her urine is clear at this time Ab as noted above 3) Electrolyte Imbalance: Decreased Na, Cl, K, Mg; Cardiac Monitoring, VSS Q8H, Fluid changed from LR to NS 150 ml/hr with BMP recheck at 2230 hours, Mg 1 gm and IV 40 mEq K ordered, 20 PO K given in ER. Monitor fluid load and electrolyte correction. Recheck CBC, BMP, and Mg in AM. 08/10/2019: Electrolytes have been corrected at this time Mg is low normal and will add another 1gm today, will continue to monitor electrolytes Increase VS monitoring to Q4H Continue Cardiac Monitoring 08/11/2019 Remain stable at this time Occasional Tachycardia but mostly improved 08/12/2019 Other than a slight increase in Cl Electrolytes remain stable 08/13/2019 Resolved 4) Hyperglycemia: No ketones, Glucose 291, SSI, Monitor Glucose Q6H. 08/10/2019: Glucose has improved though still elevated, Continue Glucose monitoring Q6H May increase SSI dosages Considering adding Metformin on DC home orders (Pt does not have a PCP at this time, will talk with Case Management regarding same) 08/11/2019 Glucose is still high Changed diet to ADA 1999 arthur Compazine seems to help with Nausea 08/12/2019 Glucose improved this AM now at 110.6 mg/dL, Diabetic Diet 1999 arthur to continue Will add Research Psychologist Start low dose Metformin today, Explained to Pt possible GI SE, Pt understood Obtained Hgb A1C and this is 5.44. No need to continue with Metformin at this time. 08/13/2019 Normalized 5) Illicit Drug Use: Monitor for withdrawal, Attempt to find Rehabilitation and/or counseling. 08/10/2019: Will talk with Case Management regarding rehabilitation or similar should Pt still be here on Monday otherwise will give a list for Pt to review 08/11/2019: Same 08/12/2019: Same 08/13/2019: Spoke with Dr. Dasilva regarding Rehab and counseling. Pt to follow up with him in AM as noted below DVT/GI Prophylaxis: Pt is ambulatory without assistance, PPI Code Status: Full Code. Discharge Planning: Referral to Dr. Dasilva to establish as PCP per Pt request: Has appointment Monday08/14/2019 at 0900 hours Continue Florastor for a week and add Augmentin for 5 days to complete 10 day course of Ab Pt would benefit from Counseling as she may end up going through divorce and has engaged in Substance Use
[2019-08-13] MEDS: GLUCOPHAGE PO SCH (08:09)
[2019-08-13] MEDS: ROCEPHIN 2 GM/50 ML D5W 2 GM/50 ML BAG IV SCH (08:09)
[2019-08-13] MEDS: FLORASTOR PO SCH (08:11)
== END 2019-08-13 11:15 | disposition home or self-care (01) | DRG 689 ==
LOC: ED 14:08 → SCU 14:08 → MEDSURG B 08-11 09:18
PROVIDERS: ADMIT Nurse Practitioner Family; ATTEND Nurse Practitioner Family
DX: F32.9 Major depressive disorder, single episode, unspecified; F41.9 Anxiety disorder, unspecified; F12.90 Cannabis use, unspecified, uncomplicated; R50.9 Fever, unspecified; M79.10 Myalgia, unspecified site; F14.10 Cocaine abuse, uncomplicated; R00.0 Tachycardia, unspecified; R10.9 Unspecified abdominal pain; S20.219A Contusion of unspecified front wall of thorax, initial encounter; R73.9 Hyperglycemia, unspecified; R11.0 Nausea; R05 Cough; F15.10 Other stimulant abuse, uncomplicated; S40.022A Contusion of left upper arm, initial encounter; A41.9 Sepsis, unspecified organism; S40.021A Contusion of right upper arm, initial encounter; Z03.818 Encounter for observation for suspected exposure to other biological agents ruled out; N39.0 Urinary tract infection, site not specified; R07.81 Pleurodynia; R31.9 Hematuria, unspecified; R51 Headache; E66.9 Obesity, unspecified; R53.83 Other fatigue; R42 Dizziness and giddiness; E87.8 Other disorders of electrolyte and fluid balance, not elsewhere classified